=== PATIENT | female | born 1985 | race Caucasian/White ===

== ENCOUNTER 2019-01-21 16:15 | Inpatient (IN) | payer MEDICAID ==
[~2019-01-21] VITALS: Ht 167.6 cm; Wt 76.2 kg
[2019-01-21] MEDS ORDERED: METHYLERGONOVINE MALEATE 0.2 MG/ML IM PRN (16:45)
[2019-01-21] MEDS ORDERED: HEMORRHOIDAL SUPP PR PRN (16:45)
[2019-01-21] MEDS ORDERED: OXYCODONE HCL/ACETAMINOPHEN 5/325MG TABLET PO PRN (16:45)
[2019-01-21] MEDS ORDERED: ACETAMINOPHEN WITH CODEINE 300/30MG TABLET PO PRN (16:45)
[2019-01-21] MEDS ORDERED: GLYCERIN/WITCH HAZEL LEAF MEDICATED PAD TOP PRN (16:45)
[2019-01-21] MEDS ORDERED: RHO(D) IMMUNE GLOBULIN 300 MCG/SYR IM NR (16:45)
[2019-01-21] MEDS ORDERED: IBUPROFEN 400MG TABLET PO PRN (16:45)
[2019-01-21] MEDS ORDERED: BISACODYL 10MG SUPP PR PRN (16:45)
[2019-01-21 19:29] LABS: INR 0.9; PROTHROMBIN TIME 9.4 sec (9.6-11.0)
[2019-01-21 19:38] LABS: BASOPHILS % 0.1 % (0.0-2.0); EOSINOPHILS % 0.1 % (0.0-5.0); HEMATOCRIT. 29.9 % (36.0-48.0); HEMOGLOBIN. 10.1 g/dL (12.0-16.0); LYMPHOCYTES % 10.2 % (20.0-50.0); MEAN CORPUSCULAR HEMOGLOBIN 28.9 pg (28.0-32.0); MEAN CORPUSCULAR VOLUME 85.5 fL (81.0-99.0); MEAN PLATELET VOLUME 8.5 fl (7.4-10.4); MONOCYTES % 6.4 % (2.0-8.0); NEUTROPHILS % 83.2 % (40.0-76.0); PLATELET 290 x1000/uL (130-400); RED CELL DISTRIBUTION WIDTH 14.2 % (11.6-14.6)
[2019-01-21 19:45] VITALS: BP 125/62
[2019-01-21 20:11] LABS: HEPATITIS B SURFACE ANTIGEN NEGATIVE
[2019-01-21] MEDS ORDERED: DOCUSATE SODIUM 100MG CAPSULE PO SCH (21:00)
[2019-01-21] MEDS: MAGNESIUM/ALUMINUM HYDROXIDE/SIMETHICONE 30ML UDC PO SCH (21:33)
[2019-01-21] MEDS: SIMETHICONE 80MG TABLET CHEW PO SCH (21:33)
[2019-01-22] VITALS: BP 112/59
[2019-01-22 04:00] VITALS: BP 134/62
[2019-01-22 04:49] LABS: CLARITY URINE CLEAR (CLEAR); COLOR URINE YELLOW (YELLOW); KETONES URINE NEGATIVE (NEGATIVE); LEUKOCYTE ESTERASE URINE NEGATIVE (NEGATIVE); NITRITE URINE NEGATIVE (NEGATIVE); OCCULT BLOOD URINE 2+ (NEGATIVE); PROTEIN URINE NEGATIVE (NEGATIVE); SPECIFIC GRAVITY URINE 1.011 (1.005-1.030); UROBILINOGEN URINE 0.2 E.U./dL (0.2-1.0)
[2019-01-22 05:07] LABS: *AMPHETAMINES SCREEN URINE NEGATIVE (NEGATIVE)
[2019-01-22 05:08] LABS: *BARBITURATES SCREEN URINE NEGATIVE (NEGATIVE); *BENZODIAZEPINES SCREEN URINE NEGATIVE (NEGATIVE); *COCAINE SCREEN URINE NEGATIVE (NEGATIVE); CANNABINOID URINE SCREEN NEGATIVE (NEGATIVE); METHADONE URINE SCREEN NEGATIVE (NEGATIVE); OPIATES URINE SCREEN NEGATIVE (NEGATIVE); PHENCYCLIDINE URINE SCREEN NEGATIVE (NEGATIVE)
[2019-01-22] MEDS ORDERED: FERROUS SULFATE 325MG TABLET PO SCH (07:30)
[2019-01-22 07:42] VITALS: BP 113/56
[2019-01-22] MEDS: MAGNESIUM/ALUMINUM HYDROXIDE/SIMETHICONE 30ML UDC PO SCH (08:26)
[2019-01-22] MEDS: SIMETHICONE 80MG TABLET CHEW PO SCH (08:27)
[2019-01-22] MEDS ORDERED: PRENATAL VIT/FE FUMARATE/FA TABLET PO SCH (09:00)
== END 2019-01-22 10:00 | disposition home or self-care (01) | DRG 861 ==
LOC: 8 EST LDRP 16:15 → OBSVTOIN 16:15 → 8EST 20:30
PROVIDERS: ADMIT Obstetrics & Gynecology; ATTEND Obstetrics & Gynecology
DX: Z39.2 Encounter for routine postpartum follow-up (principal)
CPT/HCPCS: 36415; 80305; 86592; 86703; 86762; 86850; 86900; 87340; 99281

== ENCOUNTER 2020-05-28 12:20 | Emergency (ER) | payer MEDICAID ==
[~2020-05-28] VITALS: Ht 172.7 cm; Wt 58.0 kg
[2020-05-28] MEDS ORDERED: SODIUM CHLORIDE 0.9% 1,000 ML IV ONE (12:50)
[2020-05-28] MEDS ORDERED: KETOROLAC 30MG/ML VIAL IV STA (12:50)
[2020-05-28 13:15] LABS: BASOPHILS % 0.7 % (0.0-2.0); EOSINOPHILS % 1.7 % (0.0-5.0); HEMATOCRIT. 38.6 % (36.0-48.0); HEMOGLOBIN. 12.9 g/dL (12.0-16.0); LYMPHOCYTES % 14.3 % (20.0-50.0); MEAN CORPUSCULAR HEMOGLOBIN 29.7 pg (28.0-32.0); MEAN CORPUSCULAR VOLUME 88.7 fL (81.0-99.0); MEAN PLATELET VOLUME 7.7 fl (7.4-10.4); MONOCYTES % 5.3 % (2.0-8.0); PLATELET 279 x1000/uL (130-400); RED BLOOD CELL COUNT 4.35 mill/uL (4.2-5.4); RED CELL DISTRIBUTION WIDTH 13.1 % (11.6-14.6)
[2020-05-28 13:21] LABS: CHLORIDE 107 mEq/L (98-107)
[2020-05-28 13:22] LABS: CLARITY URINE CLEAR (CLEAR); COLOR URINE YELLOW (YELLOW); KETONES URINE NEGATIVE (NEGATIVE); LEUKOCYTE ESTERASE URINE NEGATIVE (NEGATIVE); NITRITE URINE NEGATIVE (NEGATIVE); OCCULT BLOOD URINE 1+ (NEGATIVE); PH URINE 6.5 (4.5-8.0); PROTEIN URINE NEGATIVE (NEGATIVE); SPECIFIC GRAVITY URINE 1.012 (1.005-1.030); UROBILINOGEN URINE 0.2 E.U./dL (0.2-1.0)
[2020-05-28 13:25] LABS: PROTHROMBIN TIME 10.9 sec (9.6-11.0)
[2020-05-28 13:34] LABS: HCG SCREEN NEGATIVE
[2020-05-28 15:43] VITALS: BP 104/58
== END 2020-05-28 15:45 | disposition home or self-care (01) ==
LOC: ER 12:20
DX: R55 Syncope and collapse (principal); R10.31 Right lower quadrant pain
CPT/HCPCS: 36415; 76830; 76856; 80053; 81003; 82962; 83690; 84703; 85025; 85610; 93005; 96361; 96374; 99285; J1885; J7030

== ENCOUNTER 2021-08-24 09:12 | Emergency (ER) | payer OTHER, MEDICAID ==
[~2021-08-24] VITALS: Ht 157.5 cm; Wt 73.0 kg
[2021-08-24] MEDS ORDERED: IBUPROFEN 600MG TABLET PO ONE (10:15)
[2021-08-24 10:28] VITALS: BP 141/49
[2021-08-24] MEDS ORDERED: IBUP-2029 MT (11:06)
== END 2021-08-24 12:16 | disposition home or self-care (01) ==
LOC: ER 09:12
DX: S89.82XA Other specified injuries of left lower leg, initial encounter (principal); X58.XXXA Exposure to other specified factors, initial encounter; Y93.89 Activity, other specified; Y92.89 Other specified places as the place of occurrence of the external cause
CPT/HCPCS: 29505; 73562; 99283

== ENCOUNTER 2022-10-20 13:03 | Emergency (ER) | payer MEDICAID, OTHER ==
[~2022-10-20] VITALS: Ht 167.6 cm; Wt 67.0 kg
[~2022-10-20 13:03] MED LIST: IBUP-2029 MT
[2022-10-20 13:14] VITALS: BP 113/65
== END 2022-10-20 14:38 | disposition home or self-care (01) ==
LOC: ER 13:03
DX: Z48.02 Encounter for removal of sutures (principal)
CPT/HCPCS: 99281

== ENCOUNTER 2022-10-26 15:37 | Emergency (ER) | payer MEDICAID ==
[~2022-10-26] VITALS: Ht 165.1 cm; Wt 75.0 kg
[2022-10-26] MEDS ORDERED: ACETAMINOPHEN 325MG TABLET PO ONE (17:15)
[2022-10-26] MEDS ORDERED: NAPR-681 MT (19:14)
[2022-10-26 19:32] VITALS: BP 115/68
== END 2022-10-26 19:34 | disposition home or self-care (01) ==
LOC: ER 16:06
DX: S00.83XA Contusion of other part of head, initial encounter (principal); Y08.89XA Assault by other specified means, initial encounter; Y93.89 Activity, other specified; Y92.89 Other specified places as the place of occurrence of the external cause; Y99.8 Other external cause status; Z79.899 Other long term (current) drug therapy
CPT/HCPCS: 70486; 81025; 99284

== ENCOUNTER 2022-11-29 11:51 | Emergency (ER) | payer MEDICAID ==
[~2022-11-29] VITALS: Ht 167.6 cm; Wt 75.0 kg
[~2022-11-29 11:51] MED LIST changes: +NAPR-681 MT
[2022-11-29 11:55] VITALS: BP 112/56
== END 2022-11-29 17:21 | disposition left against medical advice (07) ==
LOC: ER 11:51
DX: Z53.21 Procedure and treatment not carried out due to patient leaving prior to being seen by health care provider (principal)